=== PATIENT | female | born 1970 | race Caucasian/White ===

== ENCOUNTER → 2016-06-09 | Outpatient (REF) | payer BC ==
[2016-06-09 16:44] LABS: INFLUENZA VIRUS TYPE A ANTIBOD Negative (NEGATIVE); INFLUENZA VIRUS TYPE B ANTIBOD Negative (NEGATIVE)
== END ==
LOC: LAB 16:28
PROVIDERS: ATTEND Family Medicine
DX: R50.9 Fever, unspecified (principal); M79.1 Myalgia
CPT/HCPCS: 87502